=== PATIENT | female | born 1965 | race Two or more races ===

== ENCOUNTER → 2017-03-06 | Outpatient (CLI) | payer MEDICAID ==
[~2017-03-06] MED LIST: ASPI-515 PO; CHOL500050 PO; FERR-46 PO; IBUP200T48 PO; LACT1CAP40 PO; NITR100C56 PO; OXYC-302 PO
== END | disposition home or self-care (01) ==
LOC: CFH 10:42
PROVIDERS: ATTEND Nurse Practitioner Family
DX: Z12.31 Encounter for screening mammogram for malignant neoplasm of breast (principal)
CPT/HCPCS: 77063; G0202

== ENCOUNTER 2019-05-13 09:37 | Outpatient (CLI) | payer MEDICAID ==
[~2019-05-13 09:37] MED LIST changes: -IBUP200T48 PO; +IBUP200T49 PO
[2019-05-13] MEDS ORDERED: SINCALIDE (KINEVAC) 5 MCG ONE (11:26)
== END 2019-05-13 23:59 | disposition home or self-care (01) ==
LOC: RAD 09:37
PROVIDERS: ATTEND Internal Medicine Gastroenterology
DX: K21.9 Gastro-esophageal reflux disease without esophagitis (principal); Z90.710 Acquired absence of both cervix and uterus; Z79.82 Long term (current) use of aspirin; Z79.899 Other long term (current) drug therapy; Z88.5 Allergy status to narcotic agent; Z72.89 Other problems related to lifestyle
CPT/HCPCS: 76700; 78227; A9537; J2805

== ENCOUNTER → 2019-07-21 | Outpatient (CLI) | payer MEDICAID | END | disposition home or self-care (01) | LOC: RAD 14:58 | PROVIDERS: ATTEND Nurse Practitioner Family | DX: N60.02 Solitary cyst of left breast (principal) | CPT/HCPCS: 76642 ==

== ENCOUNTER → 2019-09-30 | Outpatient (CLI) | payer MEDICAID | END | disposition home or self-care (01) | LOC: CFH 10:26 | PROVIDERS: ATTEND Specialist | DX: N63.20 Unspecified lump in the left breast, unspecified quadrant (principal); R92.2 Inconclusive mammogram | CPT/HCPCS: 76642; 77066; G0279 ==